=== PATIENT | male | born 1970 | race Caucasian/White ===

== ENCOUNTER → 2018-01-29 10:27 | Outpatient (CLI) | payer OTHER, SELFPAY ==
--- NOTE | 2018-01-29 | DI.RAD.S_ITS ---
PROCEDURE: XR HAND LT MIN 3V INDICATIONS: trauma left hand TECHNIQUE: 3 views of the hand(s) acquired. COMPARISON: None. FINDINGS: Bones: Comminuted fracture of the distal fifth metacarpal with palmar angulation. Soft tissues: No suspicious soft tissue calcifications. IMPRESSION: Angulated, comminuted distal fifth metacarpal fracture. Dictated by: Mary Grace Torre M.D. on 01/29/2018 at 10:49 Approved by: Mary Grace Torre M.D. on 01/29/2018 at 10:50
== END ==
PROVIDERS: Visit Provider Family Medicine
DX: S62.397A Other fracture of fifth metacarpal bone, left hand, initial encounter for closed fracture (principal)
CPT/HCPCS: 73130

== ENCOUNTER → 2020-08-28 10:56 | Outpatient (CLI) | payer OTHER, SELFPAY ==
--- NOTE | 2020-08-28 11:03 | DI.RAD.S_ITS ---
PROCEDURE: XR TIBIA FIBULA LT 2V INDICATIONS: pain in calf TECHNIQUE: 2 views of the tibia and fibula were acquired. COMPARISON: None. FINDINGS: Bones: No fractures or dislocations. No suspicious bony lesions. Scattered degenerative subchondral sclerosis and spurring. Soft tissues: No suspicious soft tissue calcifications or masses. IMPRESSION: Unremarkable examination. If the patient's pain or other symptoms persist, consider further evaluation with MRI Dictated by: Yuriy Quiñones M.D. on 08/28/2020 at 11:48 Approved by: Yuriy Quiñones M.D. on 08/28/2020 at 11:50
--- NOTE | 2020-08-28 11:03 | DI.RAD.S_ITS ---
PROCEDURE: XR ANKLE LT MIN 3V INDICATIONS: pain in calf TECHNIQUE: 3 views of the ankle were acquired. COMPARISON: None. FINDINGS: Bones: No fractures or dislocations. Ankle mortise is normally aligned. No suspicious bony lesions. Soft tissues: No tibiotalar joint effusion. Achilles tendon appears normal. IMPRESSION: Negative examination. If the patient's pain or other symptoms persist, consider further evaluation with MRI Dictated by: Yuriy Quiñones M.D. on 08/28/2020 at 12:01 Approved by: Yuriy Quiñones M.D. on 08/28/2020 at 12:31
== END ==
PROVIDERS: Referring Provider Family Medicine; Visit Provider Family Medicine
DX: M25.572 Pain in left ankle and joints of left foot (principal); M79.662 Pain in left lower leg
CPT/HCPCS: 73590; 73610